=== PATIENT | female | born 1995 | race Caucasian/White ===

== ENCOUNTER 2017-06-17 22:36 | Emergency (ER) | payer SELFPAY ==
[~2017-06-17] VITALS: Ht 157.5 cm; Wt 105.0 kg
[~2017-06-17 22:36] MED LIST: IBUP800T23 PO
[2017-06-17 22:38] VITALS: BP 143/87; PULSE 100; RESP 16; TEMP 98.2
--- NOTE | 2017-06-17 23:24 | PD ---
HPI Chief Complaint: Flank/Kidney Pain Time Seen by Provider: 23:22 Travel History International Travel<30 days: No Contact w/Intl Traveler<30days: No Traveled to known affect area: No History of Present Illness HPI The patient is a 21 year old female who presents to the [facility] emergency department with a history of vomiting and diarrhea that began this morning. She then developed abdominal pain in the center of her after. Later, she began to also have lower back pain in the center. She reports that the pain has continued in both locations. She has had n/v x2. She has had diarrhea 3-4 x today. She denies any blood in the stool. She had a fever with a tmax of 99 associated with chills. On review of systems otherwise, she denies having any neck pain, chest pain, shortness of breath, urinary symptoms, or neurologic symptoms. She has had a dry cough today. LMP: 05/01/17. PFSH Past Medical History Narrative Medical The patient's past medical history is significant for perforated ear drums, ovarian cysts. Cardiovascular Problems: Yes (HEART MURMUR) Diminished Hearing: Yes ([place] LEFT EAR) Immunizations Current: Yes Migraines: Yes Tetanus Vaccination: Unknown Influenza Vaccination: No ?: Unknown : 0 Para: 0 Miscarriage: 0 : 0 Past Surgical History Narrative Surgical The patient's past surgical history is significant for ear drum sx, adenoidectomy Ear Surgery: Yes (RECONSTRUCTIVE) Tonsillectomy: Yes (ADENOIDS) Tympanostomy Tube: Yes Other Surgery: Yes (ADNOIDS REMOVED) Social History Alcohol Use: No Tobacco Use: Yes (1/2 ppd) Substance Use: No Allergies-Medications (Allergen,Severity, Reaction): Coded Allergies: No Known Allergies (Verified Adverse Reaction, Unknown, 06/17/17) Reported Meds & Prescriptions Reported Meds & Active Scripts Active No Active Prescriptions or Reported Medications Review of Systems Except as stated in HPI: all other systems reviewed are Neg General / Constitutional: No: Fever Eyes: No: Visual changes HENT: No: Headaches Cardiovascular: No: Chest Pain or Discomfort Respiratory: Positive: Cough, No: Shortness of Breath Gastrointestinal: Positive: Nausea, Vomiting, Diarrhea, Abdominal Pain, Changes in Bowel Habits Genitourinary: No: Dysuria Musculoskeletal: No: Pain Skin: No Rash Neurologic: No: Weakness Psychiatric: No: Depression Endocrine: No: Polydipsia Hematologic/Lymphatic: No: Easy Bruising Physical Exam Narrative General: The patient is a well-developed well-nourished female in no acute distress. Head and Neck exam: Head is normocephalic atraumatic. Eyes: EOMI, pupils are equal round and reactive to light. Nose: Midline septum with pink mucous membranes Mouth: Dentition unremarkable. Moist mucus membranes. Posterior oropharynx is not erythematous. No tonsillar hypertrophy. Uvula midline. Airway patent. Neck: No palpable lymphadenopathy. No nuchal rigidity. No thyromegaly. Cardiovascular: Regular rate and rhythm without murmurs, gallops, or rubs. Lungs: Clear to auscultation bilaterally. No wheezes, rhonchi, or rales. Abdomen: Soft, tenderness on palpation over the right lower quadrant of the abdomen and right upper quadrant the abdomen with a negative Bunn's sign. The patient has tenderness on palpation over McBurney's point. No guarding, rebound, or rigidity. Normal bowel sounds are audible. Extremities: No clubbing, cyanosis, or edema. 2+ pulses in all 4 extremities. No calf tenderness on palpation. Back: No spinous process tenderness to palpation. Right-sided CVA tenderness on palpation. Neurologic Exam: Grossly nonfocal. Skin Exam: No rash noted. Intact skin that is warm and dry. Data Data Last Documented VS Vital Signs Date Time Temp Pulse Resp B/P (MAP) Pulse Ox O2 Delivery O2 Flow Rate FiO2 06/18/17 01:01 66 18 110/55 (73) 100 Room Air 06/17/17 22:38 98.2 Orders Orders Complete Blood Count With Diff (06/17/17 23:23) Comprehensive Metabolic Panel (06/17/17 23:23) C-Reactive Protein (Crp) (06/17/17 23:23) Lipase (06/17/17 23:23) Urinalysis - C+S If Indicated (06/17/17 23:23) Magnesium (Mg) (06/17/17 23:23) Iv Access Insert/Monitor (06/17/17 23:23) Ecg Monitoring (06/17/17 23:23) Oximetry (06/17/17 23:23) Ed Urine Pregnancytest Poc (06/17/17 23:23) Ct Abd/Pel W Iv Contrast(Rout) (06/18/17 00:20) Sodium Chlor 0.9% 1000 Ml Inj (Ns 1000 M (06/18/17 00:45) Ondansetron Inj (Zofran Inj) (06/18/17 00:45) Morphine Inj (Morphine Inj) (06/18/17 00:45) Iohexol 350 Inj (Omnipaque 350 Inj) (06/18/17 00:48) Labs Laboratory Tests Test 06/17/17 23:25 White Blood Count 12.6 TH/MM3 Red Blood Count 4.80 MIL/MM3 Hemoglobin 14.2 GM/DL Hematocrit 43.1 % Mean Corpuscular Volume 89.8 FL Mean Corpuscular Hemoglobin 29.7 PG Mean Corpuscular Hemoglobin Concent 33.1 % Red Cell Distribution Width 13.3 % Platelet Count 286 TH/MM3 Mean Platelet Volume 9.0 FL Neutrophils (%) (Auto) 58.6 % Lymphocytes (%) (Auto) 31.4 % Monocytes (%) (Auto) 6.0 % Eosinophils (%) (Auto) 2.7 % Basophils (%) (Auto) 1.3 % Neutrophils # (Auto) 7.4 TH/MM3 Lymphocytes # (Auto) 4.0 TH/MM3 Monocytes # (Auto) 0.8 TH/MM3 Eosinophils # (Auto) 0.3 TH/MM3 Basophils # (Auto) 0.2 TH/MM3 CBC Comment DIFF FINAL Differential Comment Urine Color YELLOW Urine Turbidity CLEAR Urine pH 6.5 Urine Specific Majestic 1.033 Urine Protein TRACE mg/dL Urine Glucose (UA) NEG mg/dL Urine Ketones NEG mg/dL Urine Occult Blood NEG Urine Nitrite NEG Urine Bilirubin NEG Urine Urobilinogen 2.0 MG/DL Urine Leukocyte Esterase NEG Urine RBC 2 /hpf Urine WBC 1 /hpf Urine Squamous Epithelial Cells 2 /hpf Urine Bacteria RARE /hpf Urine Mucus FEW /lpf Microscopic Urinalysis Comment CULT NOT INDICATED Blood Urea Nitrogen 11 MG/DL Creatinine 0.98 MG/DL Random Glucose 107 MG/DL Total Protein 7.3 GM/DL Albumin 4.0 GM/DL Calcium Level 8.5 MG/DL Magnesium Level 2.0 MG/DL Alkaline Phosphatase 99 U/L Aspartate Amino Transf (AST/SGOT) 25 U/L Alanine Aminotransferase (ALT/SGPT) 47 U/L Total Bilirubin 0.2 MG/DL Sodium Level 140 MEQ/L Potassium Level 3.6 MEQ/L Chloride Level 106 MEQ/L Carbon Dioxide Level 29.4 MEQ/L Anion Gap 5 MEQ/L Estimat Glomerular Filtration Rate 71 ML/MIN C-Reactive Protein 1.30 MG/DL Lipase 194 U/L MDM Medical Decision Making Medical Screen Exam Complete: Yes Emergency Medical Condition: Yes Medical Record Reviewed: Yes Differential Diagnosis Appendicitis, versus biliary colic, versus acute cholecystitis, versus pyelonephritis, versus kidney stone, versus gastroenteritis Narrative Course During the course of the patients emergency department visit, the patients history, examination, and differential diagnosis were reviewed with the patient. The patient was placed on a salesperson household appliances with oximetry and frequent blood pressure monitoring. The patient had IV access obtained and blood work sent for analysis. A bedside test was negative The patient was initially provided normal saline 1 L IV fluid bolus, morphine 2 mg IV, Zofran 4 mg IV. The patients laboratory studies were reviewed and remarkable for a white count of 12.6, hemoglobin 14.2, platelets 286 with a normal differential, CMP is remarkable for glucose of 107, C-reactive protein 1.30, lipase 194, urinalysis shows rare bacteria, culture not indicated Radiology studies were reviewed and remarkable for a CT scan of the abdomen and pelvis shows no acute abnormality. Hepatic steatosis is noted. A 1.4 cm cyst in the left ovary is noted. The patient will be discharged home with a prescription for nausea medication. The patient is instructed to take Tylenol as needed for discomfort The patient is resting comfortably and feels better, is alert and in no distress. The patients results and examination findings were discussed with the patient. The repeat examination is unremarkable and benign. The history, exam, diagnostic testing, and current condition do not suggest any significant pathology to warrant further testing, continued ED treatment, admission, or surgical evaluation at this point. The vital signs have been stable. The patient does not have uncontrollable pain, intractable vomiting, or other significant symptoms. The patient's condition is stable and appropriate for discharge. The patient will pursue further outpatient evaluation with a primary care physician or other designated or consulting physician as indicated in the discharge instructions. The patient expressed understanding and was agreeable with this plan. Diagnosis Primary Impression: Abdominal pain Qualified Codes: R10.9 - Unspecified abdominal pain Additional Impressions: Vomiting Qualified Codes: R11.2 - Nausea with vomiting, unspecified Diarrhea Qualified Codes: R19.7 - Diarrhea, unspecified Referrals: Primary Care Physician 3 days Patient Instructions: Abdominal Pain (ED), Acute Diarrhea (ED), Acute Nausea and Vomiting (ED), General Instructions Med/Other Pt SpecificInfo: Prescription(s) given Scripts Ondansetron Odt (Zofran Odt) 4 Mg Tab 4 MG SL Q6HR Y for Nausea/Vomiting, #7 TAB 0 Refills Prov: Jessenia Varghese MD 06/18/17 Disposition: 01 DISCHARGE HOME Condition: Stable Jessenia Varghese MD Jun 17, 2017 23:24
[2017-06-17 23:41] LABS: AUTOMATED NEUTROPHIL # 7.4 TH/MM3 (1.8-7.7); BASOPHIL # 0.2 TH/MM3 (0-0.2); BASOPHIL % 1.3 % (0.0-2.0); EOSINOPHIL # 0.3 TH/MM3 (0-0.4); EOSINOPHIL % 2.7 % (0.0-4.0); HEMATOCRIT 43.1 % (35.0-46.0); HEMO FLAGS DIFF FINAL; LYMPH % 31.4 % (9.0-44.0); MEAN CELL VOLUME 89.8 FL (80.0-100.0); MEAN CORPUSCULAR HEMOGLOBIN 29.7 PG (27.0-34.0); MEAN CORPUSCULAR HGB CONC 33.1 % (32.0-36.0); NEUT % 58.6 % (16.0-70.0); PLATELET COUNT 286 TH/MM3 (150-450); RED CELL DISTRIBUTION WIDTH 13.3 % (11.6-17.2); WHITE BLOOD COUNT 12.6 TH/MM3 (4.0-11.0)
[2017-06-17 23:45] LABS: BACTERIA, URINE RARE /hpf; BLOOD, URINE NEG (NEG); COMMENT (UR) CULT NOT INDICATED; CULTURE IF INDICATED CULT NOT INDICATED; GLUCOSE,URINE NEG (NEG); KETONE, URINE NEG (NEG); MUCUS URINE FEW /lpf (OCC); NITRITE,URINE NEG (NEG); PH, URINE 6.5 (5.0-8.5); SQUAMOUS EPITHELIAL CELL URINE 2 /hpf (0-5); URINE COLOR YELLOW (YELLW/STRAW)
[2017-06-17 23:50] VITALS: BP 121/60; PULSE 86; RESP 18; O2SAT 100
[2017-06-18 00:01] LABS: ALT (GPT) 47 U/L (10-53); ANION GAP 5 MEQ/L (5-15); AST (GOT) 25 U/L (15-37); BICARBONATE 29.4 MEQ/L (21.0-32.0); BLOOD UREA NITROGEN 11 MG/DL (7-18); CHLORIDE 106 MEQ/L (98-107); GLOMERULAR FILTRATION RATE 71 ML/MIN (>89); POTASSIUM 3.6 MEQ/L (3.5-5.1); SODIUM (NA) 140 MEQ/L (136-145)
[2017-06-18 00:03] LABS: ALKALINE PHOSPHATASE 99 U/L (45-117); TOTAL BILIRUBIN ADULT 0.2 MG/DL (0.2-1.0)
[2017-06-18] MEDS ORDERED: ONDANSETRON HCL 4 MG/2 ML VIAL IV ONE (00:45)
[2017-06-18] MEDS ORDERED: MORPHINE SULFATE 2 MG/ML INJ IV PUSH ONE (00:45)
[2017-06-18] MEDS ORDERED: SODIUM CHLOR 0.9% 1000 ML INJ 1,000 ML IV ONE (00:45)
[2017-06-18] MEDS ORDERED: IOHEXOL 350 MG/ML 10 ML VIAL (for RAD DIAG) IVCONTRAST ONE (00:48)
--- NOTE | 2017-06-18 00:58 | RADRPT ---
EXAM DATE/TIME: 06/18/2017 00:34 [facility] COMPARISON: No previous studies available for comparison. INDICATIONS : Right lower quadrant pain; possible appendicitis. IV CONTRAST: 96 cc Omnipaque 350 (iohexol) IV ORAL CONTRAST: No oral contrast ingested. RADIATION DOSE: 13.07 CTDIvol (mGy) MEDICAL HISTORY : Cardiovascular disease. SURGICAL HISTORY : None. ENCOUNTER: Initial ACUITY: 1 day PAIN SCALE: 7/10 LOCATION: Right lower quadrant abdomen TECHNIQUE: Volumetric scanning of the abdomen and pelvis was performed. Using automated exposure control and ad justment of the mA and/or kV according to patient size, radiation dose was kept as low as reasonably achievable to obtain optimal diagnostic quality images. DICOM format image data is available electro nically for review and comparison. FINDINGS: LOWER LUNGS: The visualized lower lungs are clear. LIVER: There is decreased density to the liver without lesion. There is no dilation of the biliary tree. N o calcified gallstones. SPLEEN: Normal size without lesion. PANCREAS: Within normal limits. KIDNEYS: Normal in size and shape. There is no mass, stone or hydronephrosis. ADRENAL GLANDS: Within normal limits. VASCULAR: There is no aortic aneurysm. BOWEL/MESENTERY: The stomach, small bowel, and colon demonstrate no acute abnormality. There is no free intraperitone al air or fluid. The appendix appears normal. ABDOMINAL WALL: Within normal limits. RETROPERITONEUM: There is no lymphadenopathy. BLADDER: No wall thickening or mass. REPRODUCTIVE: There is a 1.4 cm cyst seen at the left ovary. INGUINAL: There is no lymphadenopathy or hernia. MUSCULOSKELETAL: Within normal limits for patient age. CONCLUSION: 1. No acute abnormality seen. 2. Hepatic steatosis. Isauro Thomas MD on June 18, 2017 at 0:53 Board Certified Radiologist. This report was verified electronically.
[2017-06-18 01:01] VITALS: BP 110/55; PULSE 66; RESP 18; O2SAT 100
[2017-06-18] MEDS ORDERED: ZOFR4TAB3 SL (01:12)
[2017-06-18 02:04] VITALS: BP 105/57
== END 2017-06-18 02:07 | disposition home or self-care (01) ==
LOC: NEPC 22:36
DX: R10.31 Right lower quadrant pain (principal); R19.7 Diarrhea, unspecified; R11.2 Nausea with vomiting, unspecified; R05 Cough; M54.5 Low back pain; F17.200 Nicotine dependence, unspecified, uncomplicated
CPT/HCPCS: 74177; 80053; 81001; 83690; 83735; 84703; 85025; 86140; 96361; 96374; 96375; 99285; J2270; J2405; J7030; Q9967